=== PATIENT | female | born 1970 | race Two or more races ===

== ENCOUNTER 2017-05-19 21:32 | Emergency (ER) | payer OTHER ==
[~2017-05-19] VITALS: Ht 167.6 cm; Wt 65.3 kg
[2017-05-19 21:39] VITALS: BP 136/96
[2017-05-19 22:07] LABS: CONDITION Y; DEFINITIVE SEE PRINTOUT; Mean Corpuscular Hemoglobin 25.8 pg (28.0-32.0); Mean Corpuscular Hgb Conc. 32.5 g/dL (32.0-36.0); Mean Corpuscular Volume 79.3 fL (80.0-100.0); Mean Platelet Volume 8.6 fL (7.4-10.4); Platelet Count (auto) 295 10^3/uL (140-450); SUSPECT SEE PRINTOUT
[2017-05-19 22:12] LABS: Red Cell Distribution Width 27.4 % (11.6-16.0)
[2017-05-19 22:13] LABS: Metamyelocytes % 0; Myelocytes % 0; Promyelocytes % 0; Reactive Lymphocytes 0
[2017-05-19 22:32] LABS: Albumin 3.4 g/dL (3.4-5.0); Anion Gap 9 (5-15); Blood Urea Nitrogen 9 mg/dL (7-18); Calcium 8.1 mg/dL (8.5-10.1); Carbon Dioxide 24 mmol/L (21-32); Chloride 110 mmol/L (98-107); Glucose 87 mg/dL (74-106); Potassium 3.8 mmol/L (3.5-5.1); Sodium 143 mmol/L (136-145)
[2017-05-19 22:33] LABS: Magnesium 2.2 mg/dL (1.6-2.6)
[2017-05-19 22:35] LABS: Aspartate Aminotransferase 22 U/L (15-37); GFR African American 138 mL/min; GFR Non-African American 114 mL/min
[2017-05-19 22:40] LABS: Alkaline Phosphatase 62 U/L (45-117); Bilirubin, Total 0.8 mg/dL (0.2-1.0); Total Protein 7.2 g/dL (6.4-8.2)
[2017-05-19 23:29] LABS: Anisocytosis Slight; Burr Cells FEW; Hypochromia Slight; Ovalocytes FEW; Platelet Estimate Adequate
== END 2017-05-20 03:36 | disposition left against medical advice (07) ==
LOC: EDBD 21:32 → ER 21:44
DX: R07.89 Other chest pain (principal); Z53.21 Procedure and treatment not carried out due to patient leaving prior to being seen by health care provider
CPT/HCPCS: 36415; 80053; 83735; 84484; 85007; 85027; 93005